=== PATIENT | male | born 1970 | race Caucasian/White ===

== ENCOUNTER → 2018-02-21 | Outpatient (CLI) | payer BC, OTHER ==
[~2018-02-21] MED LIST: IOPAMIDOL (ISOVUE-300) 100 ML BTL ONE
== END ==
LOC: CIMAGING 12:58
PROVIDERS: ATTEND Internal Medicine
DX: R31.0 Gross hematuria (principal); K76.0 Fatty (change of) liver, not elsewhere classified
CPT/HCPCS: 74178-PO; Q9967